=== PATIENT | female | born 1985 | race Caucasian/White ===

== ENCOUNTER 2025-04-03 12:32 | Emergency (ER) | payer BC ==
[2025-04-03 13:27] LABS: Absolute Eosinophils 0.1 K/uL (0-0.5); Absolute Lymphocytes (CBC) 1.8 K/uL (0.7-4.9); Absolute Monocytes 0.4 K/uL (0.1-1.3); Absolute Neutrophil 2.8 K/uL (1.8-8.0); Basophils % 0.5 % (0-1.3); Eosinophils % 1.9 % (0-4.4); Hematocrit 39.4 % (36.0-45.0); Hemoglobin 13.2 g/dL (12.0-15.0); Lymphocytes % 35.8 % (15.3-44.8); MCH 30.1 pg (27.0-35.0); MCHC 33.5 g/dL (32.0-36.0); MCV 89.9 fL (80-100); MPV 8.7 fL (7.6-11.3); Monocytes % 7.8 % (3.3-12.3); Nucleated Red Blood Cells % 0.1 % (0-0); Platelets 254 thou/uL (152-406); RBC Red Blood Cell Count 4.38 M/uL (3.86-4.86); Red Cell Distribution Width 13.5 % (12.1-15.2)
[2025-04-03 13:32] LABS: PT Prothrombin Time 12.2 SECONDS (10-13.0); Protime INR 1.07
[2025-04-03 13:53] LABS: Anion Gap 7.9 mEq/L (5.0-15.0); BUN Blood Urea Nitrogen 11 mg/dL (7-18); Bicarbonate 27 mEq/L (21-32); Glomerular Filtration Rate 85 ml/min (=/>90); Glucose Level 75 mg/dL (74-106); Magnesium 2.1 mg/dL (1.6-2.4); NT PRO-BNP 85 pg/mL (<125); Potassium 3.9 mEq/L (3.5-5.1); Sodium Level 140 mEq/L (136-145)
[2025-04-03 14:08] LABS: Troponin High Sensitivity < 3.0 pg/mL (<58.9)
--- NOTE | 2025-04-03 14:08 | RAD REPORT ---
EXAM: CT brain without contrast HISTORY: right arm tingling COMPARISON: None TECHNIQUE: Multiple contiguous axial images were obtained and a CT of the brain without contrast. Sag ittal and coronal reformats were performed. One or more of the following dose reduction techniques were used: Automated exposure control, adjust ment of the mA and/or kV according to patient size, and/or iterative reconstruction. FINDINGS: No evidence of hydrocephalus, intracranial hemorrhage, or extra-axial fluid collection. The brain is normal in morphology. No evidence of midline shift or areas of brain edema. The calvarium is intact. The visualized paranasal sinuses and mastoid air cells are essentially clear . EXAM: CT of the cervical spine without contrast HISTORY: Neck pain, injury right arm tingling TECHNIQUE: Multiple contiguous axial images were obtained in a CT of the cervical spine without contr ast. Sagittal and coronal reformats were performed. FINDINGS: The vertebral bodies demonstrate normal height and alignment. No evidence of acute fracture or subluxation.. No degenerative changes are present. No prevertebral soft tissue swelling is seen. The posterior facets are well aligned. Normal alignment of the skull base with the cervical spine is seen. The lung apices are unremarkable. COMBINED IMPRESSION: No evidence of acute intracranial abnormality. No evidence of acute osseous abnormality of the cervical spine.
--- NOTE | 2025-04-03 14:14 | RAD REPORT ---
EXAMINATION: ONE VIEW CHEST XR CLINICAL INDICATION: tingling right arm TECHNIQUE: Frontal chest projection is submitted. Examination is limited by patient positioning and t echnique. COMPARISON: No prior exam. FINDINGS: The lungs are well inflated and clear. The heart is normal in size. No displaced fractures identified . IMPRESSION: No acute intrathoracic abnormalities.
--- NOTE | 2025-04-03 14:23 | RAD REPORT ---
EXAMINATION: US RIGHT UPPER EXTREMITY VENOUS DOPPLER CLINICAL INDICATION: tingling;Pain RIGHT TECHNIQUE: Complete bilateral duplex sonography of the RIGHT upper extremity veins was performed. The examination included compression for vein patency, color Doppler imaging and flow augmentation in response to distal compression of the internal jugular, brachiocephalic, subclavian, axillary, brachi al, radial, ulnar, cephalic and basilic veins. COMPARISON: No prior exam. FINDINGS: Duplex sonography testing of the veins of the RIGHT upper extremity was performed. Color flow imaging shows all veins to be compressible with [id number] color filling. Pulsatile and phasic flow is present within all upper extremity deep and superficial veins examined. IMPRESSION: There is no deep vein or superficial vein thrombosis.
--- NOTE | 2025-04-03 14:24 | RAD REPORT ---
EXAMINATION:Upper Ext Artery Uni Juan J CLINICAL INDICATION: Female, 39 years old. tingling, weak pulse;Pain RIGHT TECHNIQUE: Arterial duplex ultrasound was performed of the right upper extremity with real-time, colo r-flow, and spectral wave Doppler evaluation. Ankle brachial indices were not performed. COMPARISON: No prior exam. FINDINGS: No plaque throughout the evaluated arterial system. Triphasic waveforms are seen throughout the evaluated right upper extremity arterial system. IMPRESSION: No significant flow abnormality detected.
--- NOTE | 2025-04-03 14:38 | EDPHYS ---
Physician Documentation [facility] Name: Kala Garcia Age: 39 yrs Sex: Female : 1985 Arrival Date: 04/03/2025 Time: 12:32 Bed 6 Private MD: ED Physician Boo Lund HPI: 04/03 13:08 This 39 yrs old Female presents to ER via Ambulatory with complaints of Arm Pain. rn 13:08 The patient or guardian complains of pain. The complaints affect the dorsal aspect of rn right forearm and palmar aspect of right forearm. 13:09 Onset: The symptoms/episode began/occurred yesterday. Patient reports right forearm rn tingling and pain since yesterday. No injury. Patient reports now radiates up to right shoulder and neck. No weakness. No chest pain or shortness of breath. No headache. No other focal neurological deficit. No history of DVT or PE. No recent procedure. No reports of Raynaud's phenomena. 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 - Infectious Disease History:: Denies. - Social history:: Smoking status: Patient denies any tobacco usage or history of. - Family history:: not pertinent. - Hospitalizations: : No recent hospitalization is reported. ROS: 13:09 Constitutional: Negative for fever, chills, and weight loss, Neck: Negative for injury, rn and swelling, Cardiovascular: Negative for chest pain, palpitations, and edema, Respiratory: Negative for shortness of breath, cough, wheezing, and pleuritic chest pain, Abdomen/GI: Negative for abdominal pain, nausea, vomiting, diarrhea, and constipation, MS/Extremity: Positive for right arm tingling and pain Skin: Negative for injury, rash, and discoloration, Neuro: Positive for paresthesia to the right forearm, negative for headache Exam: 13:09 Constitutional: This is a well developed, well nourished patient who is awake, alert, rn and in no acute distress. Cardiovascular: Regular rate and rhythm. No pulse deficits. Respiratory: No increased work of breathing, no retractions or nasal flaring. Skin: No cyanosis or erythema MS/ Extremity: No cyanosis. Bilateral radial pulses weak but equal. Cool extremities bilaterally Neuro: Awake and alert, GCS 15, oriented to person, place, time, and situation. Cranial nerves II-XII grossly intact. Motor strength 5/5 in all extremities. Sensory grossly intact. Cerebellar exam normal. Normal gait. 18:37 ECG was reviewed by the Attending Physician. rn Vital Signs: 13:03 BP 137 / 89; Pulse 68; Resp 16; Pulse Ox 100% on R/A; ss 13:09 Weight 91.17 kg; Height 5 ft. 9 in. ; Pain 5/10; ss 14:30 BP 128 / 82; Pulse 59; Resp 18; Pulse Ox 98% on R/A; ph 14:45 BP 124 / 78; Pulse 62; Resp 16; Temp 98.1; Pulse Ox 99% ; me1 13:09 Body Mass Index 29.68 (91.17 kg, 175.26 cm) ss 13:09 Pain Scale: Adult ss MDM: 12:48 Medical Screening Exam initiated rn 14:35 Differential diagnosis: Neuropathy, radiculopathy, radiated pain, DVT, arterial rn insufficiency. Data reviewed: vital signs, nurses notes, lab test result(s), radiologic studies, CT scan, ultrasound, and as a result, I will discharge patient. Counseling: I had a detailed discussion with the patient and/or guardian regarding the historical points, exam findings, and any diagnostic results supporting the discharge/admit diagnosis, lab results, radiology results, the need for outpatient follow up, to return to the emergency department if symptoms worsen or persist or if there are any questions or concerns that arise at home. Special discussion: I discussed with the patient/guardian in detail that at this point there is no indication for admission to the hospital. It is understood, however, that if the symptoms persist or worsen the patient needs to return immediately for re-evaluation. Further emergent ED testing is not indicated at this point in time. I discussed with the patient/guardian in detail the need to arrange with the PCP or specialist further outpatient testing, MRI, Based on the history and exam findings, there is no indication for further emergent testing or inpatient evaluation. I discussed with the patient/guardian the need to see the neurologist for further evaluation of the symptoms. I discussed with the patient/guardian the need to see the primary care provider for further evaluation of the symptoms. ED course: No acute findings and workup. Ultrasound venous and arterial negative for acute findings. CT head and C-spine negative for acute findings. Most likely neuropathic problem given unilateral, C3-C6 distribution. Will discharge home with return precautions and recommend outpatient follow-up with MRI especially if symptoms persist.. 04/03 13:05 Order name: Basic Metabolic Panel; Complete Time: 14: rn 04/03 13:05 Order name: CBC with Diff; Complete Time: 14:04/03 13:05 Order name: Magnesium; Complete Time: :04/03 13:05 Order name: NT PRO-BNP; Complete Time: :04/03 13:05 Order name: PT-INR; Complete Time: 14: rn 04/03 13:05 Order name: Troponin HS; Complete Time: 14:04/03 13:05 Order name: CT Head C Spine; Complete Time: 14:04/03 13:05 Order name: XRAY Chest (1 view); Complete Time: 14: rn 04/03 13:18 Order name: UPPER EXTREMITY VENOUS UNILATE; Complete Time: 14: EDMS 04/03 13:18 Order name: Upper Ext Artery Uni Juan J; Complete Time: 14:29 EDMS 04/03 13:05 Order name: EKG; Complete Time: 13:04/03 13:05 Order name: Cardiac monitoring; Complete Time: 13:04/03 13:05 Order name: EKG - Nurse/Tech; Complete Time: :04/03 13:05 Order name: IV Saline Lock; Complete Time: :04/03 13:05 Order name: Labs collected and sent; Complete Time: :04/03 13:05 Order name: O2 Per Protocol; Complete Time: :04/03 13:05 Order name: O2 Sat Monitoring; Complete Time: : rn EC:37 Rate is 49 beats/min. Rhythm is regular. QRS [place] is Normal. NE interval is normal. QRS rn interval is normal. QT interval is normal. No Q waves. T waves are Normal. No ST changes noted. Clinical impression: Sinus bradycardia. Interpreted by me. Reviewed by me. Administered Medications: No medications were administered Disposition Summary: 04/03/25 14:38 Discharge Ordered Notes: Location: Home rn Problem: new rn Symptoms: are unchanged rn Condition: Stable rn Diagnosis - Paresthesia of skin rn Followup: rn - With: Private Physician - When: As needed - Reason: Recheck today's complaints, Re-evaluation by your physician Discharge Instructions: - Discharge Summary Sheet rn - Paresthesia rn Forms: - Medication Reconciliation Form rn - Antibiotic journalism intern - Prescription Opioid Use rn - Patient Portal Instructions rn - Leadership Thank You Letter rn Prescriptions: - gabapentin 100 mg Oral capsule - take 1 capsule ORAL route 2 times per day As needed; 14 capsule; Refills: 0, rn Product Selection Permitted - Medrol (Calvin) 4 mg Oral Tablets, Dose Pack - take 1 tablet ORAL route as directed - follow package instructions; 1 packet; rn Refills: 0, Product Selection Permitted Signatures: Dispatcher [employer] EDMS Boo Lund MD MD rn Blanchard, Shelby, RN RN Mally Fair RN RN ph Corrections: (The following items were deleted from the chart) 13:18 13:05 Extremity Venous Uni Ltd+[email or web address] ordered. EDMS EDMS 13:18 13:05 Lower Extremity Artery Uni Ltd+US.RAD.BRZ ordered. EDMS EDMS
--- NOTE | 2025-04-03 14:38 | ER ---
Nurse's Notes [facility] [place], [place] [facility] Name: Kala Garcia Age: 39 yrs Sex: Female : 1985 Arrival Date: 04/03/2025 Time: 12:32 Bed 6 Private MD: Diagnosis: Paresthesia of skin Presentation: 04/03 13:03 Chief complaint: Patient states: R forearm pain that pt noticed yesterday afternoon ss that is now radiating down R hand and up R upper arm. Pt states, "when we were at lunch I noticed a discomfort in between my shoulder blades.". Coronavirus screen: Client denies travel out of the [place] in the last 14 days. Ebola Screen: Patient denies exposure to infectious person. Patient denies travel to an Ebola-affected area in the 21 days before illness onset. Initial Sepsis Screen: Does the patient meet any 2 criteria? No. Patient's initial sepsis screen is negative. Does the patient have a suspected source of infection? No. Patient's initial sepsis screen is negative. Risk Assessment: Do you want to hurt yourself or someone else? Patient reports no desire to harm self or others. Onset of symptoms was April 02, 2025. 13:03 Method Of Arrival: Ambulatory ss 13:03 Acuity: SHEILA 3 ss Triage Assessment: 14:44 GI: Reports. 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 - Infectious Disease History:: Denies. - Social history:: Smoking status: Patient denies any tobacco usage or history of. - Family history:: not pertinent. - Hospitalizations: : No recent hospitalization is reported. Screenin:17 [facility] ED Fall Risk Assessment (Adult) History of falling in the last 3 months, ph including since admission No falls in past 3 months (0 pts) Confusion or Disorientation No (0 pts) Intoxicated or Sedated No (0 pts) Impaired Gait No (0 pts) Mobility Assist Device Used No (0 pt) Altered Elimination No (0 pt) Score/Fall Risk Level 0 - 2 = Low Risk Oriented to surroundings, Maintained a safe environment, Hourly rounding (assess needs \\T\\ fall precautionary measures) done. Abuse screen: Denies threats or abuse. Denies injuries from another. Nutritional screening: No deficits noted. Tuberculosis screening: No symptoms or risk factors identified. Assessment: 13:18 General: Appears in no apparent distress. comfortable, Behavior is calm, cooperative, ph appropriate for age. Pain: Complains of pain in palmar aspect of right forearm and dorsal aspect of right forearm Pain radiates to right hand. Neuro: Level of Consciousness is awake, alert, obeys commands, Oriented to person, place, time, situation. Cardiovascular: Capillary refill < 3 seconds in bilateral fingers. Respiratory: Airway is patent Respiratory effort is even, unlabored. GI: Abdomen is non-distended. : No signs and/or symptoms were reported regarding the genitourinary system. Derm: Skin is pink, warm \\T\\ dry. Musculoskeletal: Circulation, motion, and sensation intact. Range of motion: intact in all extremities. 14:30 Reassessment: Patient appears in no apparent distress at this time. Patient and/or ph family updated on plan of care and expected duration. Pain level reassessed. Patient is alert, oriented x 3, equal unlabored respirations, skin warm/dry/pink. Vital Signs: 13:03 BP 137 / 89; Pulse 68; Resp 16; Pulse Ox 100% on R/A; ss 13:09 Weight 91.17 kg; Height 5 ft. 9 in. ; Pain 5/10; ss 14:30 BP 128 / 82; Pulse 59; Resp 18; Pulse Ox 98% on R/A; ph 14:45 BP 124 / 78; Pulse 62; Resp 16; Temp 98.1; Pulse Ox 99% ; me1 13:09 Body Mass Index 29.68 (91.17 kg, 175.26 cm) ss 13:09 Pain Scale: Adult ss ED Course: 12:37 Patient arrived in ED. cj3 12:48 Boo Lund MD is Attending Physician. rn 13:05 Triage completed. ss 13:05 Arm band placed on right wrist. ss 13:07 Mally Fair, RN is Primary Nurse. ph 13:16 Basic Metabolic Panel Sent. ph 13:16 CBC with Diff Sent. ph 13:16 Magnesium Sent. ph 13:16 NT PRO-BNP Sent. ph 13:16 PT-INR Sent. ph 13:16 Troponin HS Sent. ph 13:16 Initial lab(s) drawn, by me, sent to lab. EKG done, by ED staff, reviewed by Mally Fair RN. Inserted saline lock: 22 gauge in left antecubital area, using aseptic technique. Blood collected. Flushed with 10 mL NS. 13:17 Patient has correct armband on for positive identification. Placed in gown. Bed in low ph position. Call light in reach. Side rails up X 1. ekg monitor on. Pulse ox on. NIBP on. Door closed. Noise minimized. Warm blanket given. 13:51 XRAY Chest (1 view) In Process Unspecified. EDMS 13:55 CT Head C Spine In Process Unspecified. EDMS 14:08 UPPER EXTREMITY VENOUS UNILATE In Process Unspecified. EDMS 14:09 Upper Ext Artery Uni Juan J In Process Unspecified. EDMS 14:44 Provided Education on: POC. Verbalized understanding.. me1 14:44 No provider procedures requiring assistance completed. me1 14:44 IV discontinued, intact, bleeding controlled, No redness/swelling at site. Pressure me1 dressing applied. Administered Medications: No medications were administered Medication: 13:17 VIS not applicable for this client. ph Outcome: 14:38 Discharge ordered by . rn 14:44 Discharged to home ambulatory, me1 14:44 Condition: stable 14:44 Discharge instructions given to patient, Instructed on discharge instructions, follow up and referral plans. medication usage, Demonstrated understanding of instructions, follow-up care, medications, Prescriptions given X 2, 14:45 Patient left the ED. me1 Signatures: Dispatcher [employer] EDBoo Sims MD MD rn Blanchard, Shelby, RN RN ss Hall, Patricia, RN RN ph Eddleman, Michelle, RN RN me1 Genna Barnhart 3 Corrections: (The following items were deleted from the chart) 14:44 14:44 GI: me1 me1
[2025-04-03 15:13] VITALS: BP 124/78; TEMP 98.1; O2SAT 99
--- NOTE | 2025-04-04 11:57 | EKG ---
Test Date: 2025-04-03 Test Time: 13:14:36 Crane Service Technician: MEASUREMENT RESULTS: Intervals: Rate: 49 MS: 130 QRSD: 88 QT: 428 QTc: 386 [place]: P: 61 MS: 130 QRS: 75 T: 64 INTERPRETIVE STATEMENTS: Sinus bradycardia Otherwise normal ECG No previous ECG available for comparison Electronically Signed On 04-04-25 11:56:28 CDT by Luis Whitney
== END 2025-04-03 14:45 | disposition home or self-care (01) ==
LOC: ER 12:32
DX: R20.2 Paresthesia of skin (principal); M79.631 Pain in right forearm
CPT/HCPCS: 36415; 70450; 71045; 72125; 80048; 83735; 83880; 84484; 85025; 85610; 93005; 93931; 93971; 99284